=== PATIENT | female | born 1990 | race African-American/Black ===

== ENCOUNTER 2017-02-14 00:40 | Emergency (ER) | payer SELFPAY ==
[~2017-02-14] VITALS: Ht 165.1 cm; Wt 77.0 kg
[2017-02-14] MEDS ORDERED: ONDANSETRON 4MG ODT PO ONE (02:15)
[2017-02-14] MEDS ORDERED: IBUPROFEN 600MG TABLET PO ONE (02:15)
[2017-02-14 02:30] VITALS: BP 130/78
== END 2017-02-14 03:22 | disposition home or self-care (01) ==
LOC: ER 00:42 → EDBD 00:42 → ER 03:22
DX: G43.909 Migraine, unspecified, not intractable, without status migrainosus (principal); R11.0 Nausea
CPT/HCPCS: 99283; Q0162